=== PATIENT | female | born 1990 | race Caucasian/White ===

== ENCOUNTER 2016-11-30 23:53 | Emergency (ER) | payer SELFPAY ==
--- NOTE | 2016-11-30 23:59 | ED Physician Chart ---
Chief Complaint/HPI - Patient Information Date Seen:: 11/30/16 Time Seen:: 23:59 Chief Complaint:: medical clearance for/okay to book History of Present Illness:: 26-year-old female, brought in by police, history of intravenous heroin use, brought in for acute, moderate, medical screening exam for okay to book to pen[facility]iary. [facility] where [facility] will be physician on staff. Has some slight anxiety regarding being arrested. Historian:: Patient Review:: Nurse's Note Reviewed Review of Systems - Review of Systems Other: Complete system review otherwise unremarkable except as noted in history of present illness. Past Medical History - Past Medical History Past Medical History: Other Family History: None Social History: Non Smoker, No Alcohol, No Drug Use, Other Surgical History: None Psychiatricy History: None Medication: None Family Medical History - Family Member Mother History Unknown: Yes Physical Exam - Physical Examination Other:: INITIAL VITAL SIGNS: Reviewed by me GENERAL: Alert and interactive. No acute distress HEAD: Head is normocephalic and atraumatic EYES: EOMI. PERRL. No scleral icterus. No conjunctival injection ENT: Moist mucous membranes. NECK: Supple. No masses. Full range of motion RESPIRATORY: No tachypnea. Clear breath sounds bilaterally. No wheezing, rales, or rhonchi CV: Regular rate and rhythm. No murmurs, rubs, or gallops ABDOMEN: Soft, non-distended, non-tender. No guarding. No rebound. No masses. EXTREMITIES: Right upper extremity has open wound that appears to be well healing. It is 3 x 3 cm. SKIN: Warm and dry. No obvious rashes. NEUROLOGIC: Alert and oriented. Face is symmetric. Speech is normal. Moves all extremities equally. Motor and sensory distally intact. ED Septic Shock - . Is Septic Shock (SBP<90, OR Lactate>4 mmol\\L) present?: No Reassessment (Disposition) - Reassessment Reassessment:: This is a 26-year-old female brought in by police for okay to book. She is medically clear. She is going to a [facility] whether his physician. She does have "of the right upper extremity. This is due to IV drug use. The wound appears to be healing well. There is no surrounding erythema. I did put this on the report that she will need wound care. Officers reassuring that there will be physician at the penitentiary. At this point patient is cleared for medical booking. Reassessment Condition:: Improved - Diagnosis Diagnosis:: Patient cleared for medical bleeding. Will be [facility]. Has healing and skin infection on the right upper extremity from using IV drugs. - Aftercare/Follow up Instructions Aftercare/Follow-Up Instructions:: Counseled pt regarding lab results/diagnosis & need follow up, Refer to Discharge Instructions - Patient Disposition Discharge/Transfer:: Longterm/Senior Living Time:: 00:13 Condition at Disposition:: Improved ED Discharge Plan - Patient Disposition Admit/Discharge/Transfer: Longterm/Senior Living Condition at Disposition: Improved Additional Instructions: Clearance for medical booking. We will need to follow-up for wound care on the right upper extremity.
[2016-12-01] MEDS ORDERED: Bacitracin pkt 1 gm Pkt TP ONE (00:10)
[2016-12-01] MEDS ORDERED: Bacitracin pkt 1 gm Pkt TP STA (00:10)
== END 2016-12-01 00:25 | disposition still patient (30) ==
LOC: ER 23:53
DX: L08.9 Local infection of the skin and subcutaneous tissue, unspecified (principal); Z02.89 Encounter for other administrative examinations
CPT/HCPCS: Z7502; Z7610